=== PATIENT | female | born 1930 ===

== ENCOUNTER → 2017-01-28 | Outpatient (CLI) | payer MEDICARE, OTHER ==
--- NOTE | 2017-01-29 14:42 | RADRPT ---
AMENDMENT: 01/29/2017 4:03:40 PM Adin Salcedo Md Correction: Impression: 2. Elevated uptake values consistent with hyperthyroidism. PROCEDURE: Nuclear medicine thyroid scan CLINICAL INDICATION: Toxic multinodular goiter. TECHNIQUE: 175.6 microcuries of I-123 was ingested by the patient. Planar imaging of the thyroid bed was performed in the anterior and oblique views. Images were reviewed on the high resolution [employer] workstation. 6 hour and 24 uptake values were measured. COMPARISON: None available FINDINGS: The thyroid gland is lobulated and heterogeneous in appearance, larger on the left than on the right . There is homogeneous uptake throughout the thyroid gland. No focal cold nodule or other abnormal ity is identified. The 5 hour uptake value equals 36.7%, abnormally elevated. The 24 hour uptake value equals 63.2%, a lso abnormally elevated. IMPRESSION: 1. Negative nuclear medicine thyroid scan. 2. Normal uptake values. RPTAT: PP .Adin Salcedo MD, MD Date Time Electronically viewed and signed by .Adin Salcedo MD, on 01/29/2017 16:03 .B/
== END | disposition home or self-care (01) ==
LOC: NUC 10:46
PROVIDERS: ATTEND Internal Medicine
DX: E04.2 Nontoxic multinodular goiter (principal)
CPT/HCPCS: 78014; A9516